=== PATIENT | male | born 1995 | race Caucasian/White ===

== ENCOUNTER 2019-03-03 03:36 | Emergency (ER) | payer SELFPAY ==
[2019-03-03 03:39] VITALS: BP 112/66
[2019-03-03] MEDS ORDERED: ONDANSETRON 4 MG ODT TABDP SL ONE (03:45)
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
== END 2019-03-03 04:09 | disposition home or self-care (01) ==
LOC: ER 03:44
DX: T51.91XA Toxic effect of unspecified alcohol, accidental (unintentional), initial encounter (principal); R11.10 Vomiting, unspecified
CPT/HCPCS: 99283; S0119

== ENCOUNTER → 2019-03-03 | Outpatient (CLI) | payer SELFPAY | LOC: LAB 03:48 | PROVIDERS: ATTEND Nurse Practitioner | DX: Z02.83 Encounter for blood-alcohol and blood-drug test (principal) | CPT/HCPCS: 99001 ==

== ENCOUNTER → 2019-03-03 | Outpatient (CLI) | payer SELFPAY | LOC: AMB 02:58 | PROVIDERS: ATTEND Nurse Practitioner | DX: R11.2 Nausea with vomiting, unspecified (principal); F10.129 Alcohol abuse with intoxication, unspecified | CPT/HCPCS: A0425; A0429 ==